=== PATIENT | male | born 1965 | race Hispanic/Latino ===

== ENCOUNTER 2023-05-18 06:00 | Day surgery (SDC) | payer OTHER ==
[2023-05-18] VITALS (9 sets, daily range): BP systolic 98–132; BP diastolic 50–67; PULSE 62–74; RESP 12–17
[~2023-05-18] VITALS: Ht 172.7 cm; Wt 93.0 kg
[~2023-05-18 06:00] MED LIST: ATOR40TA69 PO; EMPA1TAB9 PO; FERR-82 PO; INSU100I24 SQ; LOSA100T59 PO; METO-391 PO; PANT40TA54 PO; PIOGLITAZONE PO; SEMA2PEN SQ
[2023-05-18] MEDS ORDERED: 0.9%NACL 1000ML 1,000 ML IV ONE (06:22)
[2023-05-18] MEDS ORDERED: PROPOFOL 10 MG/ML 20ML VIAL IV ONE (07:58)
[2023-05-18] MEDS ORDERED: DEXTROSE 50%-WATER 50 ML DISP.SYRIN IV ONE (08:41)
== END 2023-05-18 09:35 | disposition home or self-care (01) ==
LOC: ENDO 06:00 → DAH 06:00 → ENDO 09:35
PROVIDERS: ATTEND Internal Medicine
DX: Z12.11 Encounter for screening for malignant neoplasm of colon (principal); K74.69 Other cirrhosis of liver; D12.8 Benign neoplasm of rectum; K64.1 Second degree hemorrhoids; K76.6 Portal hypertension; I85.10 Secondary esophageal varices without bleeding; I86.4 Gastric varices; K31.89 Other diseases of stomach and duodenum; K29.50 Unspecified chronic gastritis without bleeding; E66.9 Obesity, unspecified; E78.5 Hyperlipidemia, unspecified; I10 Essential (primary) hypertension; E11.9 Type 2 diabetes mellitus without complications; Z68.32 Body mass index [BMI] 32.0-32.9, adult; Z98.890 Other specified postprocedural states; Z72.89 Other problems related to lifestyle
CPT/HCPCS: 45385; 43239; 82948 ×2; J7030; J7070; J2704; J3490